=== PATIENT | female | born 1970 | race Two or more races ===

== ENCOUNTER 2021-05-02 04:59 | Inpatient (IN) | payer OTHER ==
[~2021-05-02] VITALS: Ht 177.8 cm; Wt 136.1 kg
== END 2021-05-08 11:50 | disposition home or self-care (01) | DRG 177 ==
LOC: ER 04:59 → MEDJ 15:27
PROVIDERS: ADMIT Internal Medicine; ATTEND Internal Medicine
PROC: CB2YYZZ Tomographic (Tomo) Nuclear Medicine Imaging of Respiratory System using Other Radionuclide (ICD-10-PCS; 2021-05-02)
PROC: 4A12X4Z Monitoring of Cardiac Electrical Activity, External Approach (ICD-10-PCS; 2021-05-03)
PROC: XW033E5 Introduction of Remdesivir Anti-infective into Peripheral Vein, Percutaneous Approach, New Technology Group 5 (ICD-10-PCS; principal; 2021-05-04)
PROC: 4A033R1 Measurement of Arterial Saturation, Peripheral, Percutaneous Approach (ICD-10-PCS; 2021-05-04)
DX: U07.1 COVID-19 (principal); J12.82 Pneumonia due to coronavirus disease 2019; E66.01 Morbid (severe) obesity due to excess calories; R09.02 Hypoxemia; R06.02 Shortness of breath